=== PATIENT | male | born 1990 | race Caucasian/White ===

== ENCOUNTER 2020-01-31 11:18 | Emergency (ER) | payer OTHER ==
[~2020-01-31] VITALS: Ht 172.7 cm; Wt 70.3 kg
[2020-01-31 11:20] VITALS: BP 125/76
--- NOTE | 2020-01-31 11:24 | NUR ---
Patient ambulated to bed 6. RN evaluating patient at bedside.
--- NOTE | 2020-01-31 11:31 | NUR ---
29 Y/O MALE PRESENTS WITH EPIGASTRIC PAIN X 4 DAYS RADIATING TO LEFT CHEST. PATIENT RATES PAIN 1/10, SHARP. DENIES N/V/D. DENIES SOB/CP. PT HAS BEEN SELF MEDICATING AT HOME WITH TUMS AND OMEPRAZOLE, BUT PAIN IS STILL COMING BACK. ABD SOFT/NON TENDER/NON DISTENDED. BOWEL SOUNDS NORMOACTIVE. RESP EVEN AND UNLABORED. LUNG SOUNDS CLEAR IN ALL BUCK. NO PMH NKA
--- NOTE | 2020-01-31 11:35 | NUR ---
Dr. Boyd is evaluating the patient at bedside.
[2020-01-31 11:42] VITALS: BP 125/76
--- NOTE | 2020-01-31 11:42 | NUR ---
Patient discharged with v/s stable. Written and verbal after care instructions given and explained. Patient alert, oriented and verbalized understanding of instructions. Ambulatory with steady gait. All questions addressed prior to discharge. ID band removed. Patient advised to follow up with PMD. Opportunity to ask questions provided and answered.
== END 2020-01-31 11:42 | disposition home or self-care (01) ==
LOC: MED 11:18
DX: K21.9 Gastro-esophageal reflux disease without esophagitis (principal)
CPT/HCPCS: 99282